=== PATIENT | female | born 1955 | race Caucasian/White ===

== ENCOUNTER 2021-08-27 19:17 | Emergency (ER) | payer OTHER ==
[~2021-08-27] VITALS: Ht 165.1 cm; Wt 70.3 kg
--- NOTE | 2021-08-27 19:40 | NUR ---
Brief report received from [facility], pt had just arrived and was not looking good. Pt had pale color, bloatted abdomen, nonverbal aaox0, does not answer questions, does not follow commands. eyes closed or staring off into space. VSS, slightly hypotensive at 90/58, 74bpm, 97% RA, no indications of pain. EDMD ordered 2 IVs and IV fluid bolus stat.
[2021-08-27] MEDS ORDERED: LIDOCAINE 1%-EPI 1:100,000 20 ML VIAL IJ ONE (20:00)
--- NOTE | 2021-08-27 20:04 | NUR ---
mEDICATION LIST PROVIDED BY ems IS INCOMPLETE, ONLY INCLUDES NAME OF DRUG, NO DOSAGE OR FREQUENCY. WILL CALL FAMILY TO BRING IN MORE COMPLETED LIST WHEN I HAVE TIME
[2021-08-27] MEDS ORDERED: LIDOCAINE 1%-EPI 1:100,000 20 ML VIAL ONE (20:08)
[2021-08-27 20:20] LABS: HEMATOCRIT 28.4 % (31.2-41.9); MEAN CORPUSCULAR HEMOGLOBIN 27.4 uug (24.7-32.8); MEAN CORPUSCULAR VOLUME 82.2 fL (75.5-95.3); PLATELET COUNT (AUTO) 456 K/uL (179-408)
--- NOTE | 2021-08-27 20:20 | NUR ---
DR FUNES AT BEDSIDE FOR PERICENTESIS. OVER 1500 CC OF FLUID WERE DRAINED OVER TIME
[2021-08-27 20:23] LABS: CARBON DIOXIDE 26 mmol/L (21-32); CHLORIDE 99 mmol/L (98-107); GLUCOSE 127 mg/dL (74-106); POTASSIUM 4.6 mmol/L (3.5-5.1); UREA NITROGEN, BLOOD 51 mg/dL (7-18)
[2021-08-27 20:25] LABS: ETHANOL < 3 MG/DL (0-0)
[2021-08-27 20:30] LABS: *BILIRUBIN,URIN NEGATIVE (NEGATIVE); *BLOOD, URINE 1+ (NEGATIVE); *CLARITY,URINE SLIGHTLY CLOUDY (CLEAR); *COLOR,URINE YELLOW (YELLOW); *KETONES,URINE NEGATIVE (NEGATIVE); *UROBILINOGEN,URINE 0.2 E.U./dl (NORMAL); LEUKOCYTE ESTERASE ,URINE NEGATIVE (NEGATIVE); NITRITE, URINE NEGATIVE (NEGATIVE); PH,URINE 8.5 (5.0-8.0); UGLUCOSE TRACE (NEGATIVE)
[2021-08-27 20:35] LABS: ACETAMINOPHEN < 2.0 ug/mL (10-30); ALANINE AMINOTRANSFERASE 63 U/L (14-59); ALKALINE PHOSPHATASE 328 U/L (50-136); ASPARTATE AMINOTRANSFERASE 78 U/L (15-37); BILIRUBIN,TOTAL 0.5 mg/dL (0.2-1.0); TOTAL PROTEIN, SERUM 6.5 g/dL (6.4-8.2)
[2021-08-27] MEDS ORDERED: METRONIDAZOLE 500 MG/NS 100 ML PIGGYBACK IV ONE (20:45)
[2021-08-27] MEDS ORDERED: CEFTRIAXONE 1 G in IV DEXTROSE 5% 50 ML IV ONE (20:45)
[2021-08-27] MEDS ORDERED: VANCOMYCIN IV 1,000 MG in IV DEXTROSE 5% 250 ML IV ONE (20:45)
[2021-08-27] MEDS ORDERED: IV LACTATED RINGERS SOLUTION 1,000 ML BAG IV ONE (20:45)
[2021-08-27] MEDS ORDERED: CEFTRIAXONE /D5W 50ML IVPB **ER PYXIS IV ONE (20:50)
[2021-08-27 20:53] LABS: ABG BASE EXCESS -0.2 mmol/L; ABG HCO3 23.2 mmol/L; ABG PH 7.464 (7.350-7.450); ABG PO2 70.2 mmHg (75.0-100.0); ABG SITE LEFT RADIAL; ABG TOTAL HEMOGLOBIN 9.5 G/dL (12.0-16.0); COHb 0.1 % (0.5-1.5); MetHb 0.1 % (0.0-1.5); O2Hb 94.2 % (94.0-97.0)
--- NOTE | 2021-08-27 21:01 | NUR ---
HAND OFF REPORT GIVEN TO ANTONIO OLIVARES
[2021-08-27] MEDS ORDERED: NOREPINEPHRINE BITARTRATE 4 MG/4 ML VIAL IV ONE (21:08)
[2021-08-27] MEDS ORDERED: HALOPERIDOL LACTATE 5 MG/1 ML VIAL IV ONE (21:15)
[2021-08-27] MEDS ORDERED: HALOPERIDOL LACTATE 5 MG/1 ML VIAL ONE ×2 (21:21→21:51)
[2021-08-27] MEDS ORDERED: SWABABLE VALVE TRANSFER SET EA MC ONE (21:38)
[2021-08-27] MEDS ORDERED: IOHEXOL 300MG/ML 100 ML INFUS..BTL ONE (21:38)
[2021-08-27] MEDS ORDERED: IV NORMAL SALINE 250 ML IV ONE (21:38)
--- NOTE | 2021-08-27 22:25 | NUR ---
[facility] [facility] called requesting information on ptRajiv at [phone].
--- NOTE | 2021-08-27 23:00 | NUR ---
telephone call to [place] [facility], spoke to Eliezer and requested to have Kapil PENA call Dr. Quinonez. [place] Vielka Dukes
[2021-08-27] MEDS ORDERED: METRONIDAZOLE 500 MG/NS 100ML 100 ML IV ONE (23:34)
[2021-08-27] MEDS ORDERED: VANCOMYCIN IV 200 ML ONE (23:35)
--- NOTE | 2021-08-28 00:10 | NUR ---
Telephone call to [facility], spoke to Garry and informed of negative COVID test result.
[2021-08-28] MEDS ORDERED: HALOPERIDOL LACTATE 5 MG/1 ML VIAL IV ONE (01:00)
[2021-08-28] MEDS ORDERED: HALOPERIDOL LACTATE 5 MG/1 ML VIAL ONE (01:00)
[2021-08-28] MEDS ORDERED: LORAZEPAM 2 MG/1 ML VIAL IV ONE (01:30)
--- NOTE | 2021-08-28 01:45 | NUR ---
At bedside to draw lactic acid level. Pt still screaming to leave her alone. LA draw without difficutly and sent to lab. VSS 123/68, 87bpm, 99% 4L O2, 16rpm, no signs of pain or discomfort.
--- NOTE | 2021-08-28 02:12 | NUR ---
Robert from [facility] called to inform us that pt will be going to [facility] and that we are just waiting for an admitting doc to accept her. Robert was kindly asked if he could expodite at all. He obliged by say he will do what he can. Pt is resting comfortably, lights off, rails up , VSS, just fell asleep with audible snorring after screaming out for a long while since r and d lab technician went in to draw blood cult. x2
--- NOTE | 2021-08-28 02:21 | NUR ---
Pt finally stopped screaming out "leave me alone" and has drifted off to sleep with audible snorring. Rails up, call light within reach, all needs met. Pt is clean and dry and in pos of comfort. Waiting the green light for transport from [facility].
--- NOTE | 2021-08-28 03:43 | NUR ---
EDMD just inserted a 3lumen central line without difficulty. PCXR confirmed placement.
[2021-08-28] MEDS ORDERED: NOREPINEPHRINE BITARTRATE 32 MG in IV NORMAL SALINE 218 ML IV PRN (03:45)
--- NOTE | 2021-08-28 04:05 | NUR ---
EMT-ps are here for transport to [facility].
--- NOTE | 2021-08-28 04:10 | NUR ---
Pt loaded up on amb stretcher, connected to port monitor. Sau[place]o emptied, VSS, AAOx0. Transfer paperwork given to reinforcing steel erector before departing.
--- NOTE | 2021-08-28 04:15 | NUR ---
Called [facility] and gave thorough report to Kraig OLIVARES using SBAR method. Told him that pt is in route with ETA of 20 min. Kraig confirmed and said he will be expecting them soon.
== END 2021-08-28 04:15 | disposition short-term general hospital (02) ==
LOC: ER 19:20
DX: A41.9 Sepsis, unspecified organism (principal); R60.1 Generalized edema; K62.5 Hemorrhage of anus and rectum; R41.82 Altered mental status, unspecified; L89.319 Pressure ulcer of right buttock, unspecified stage; G35 Multiple sclerosis; Z85.42 Personal history of malignant neoplasm of other parts of uterus; E11.9 Type 2 diabetes mellitus without complications; J90 Pleural effusion, not elsewhere classified; R91.8 Other nonspecific abnormal finding of lung field; I11.9 Hypertensive heart disease without heart failure; R94.31 Abnormal electrocardiogram [ECG] [EKG]; K76.0 Fatty (change of) liver, not elsewhere classified; K59.00 Constipation, unspecified; Z20.822 Contact with and (suspected) exposure to COVID-19
CPT/HCPCS: 36415 ×2; 36556; 36600; 49083; 70450; 71045 ×2; 74177; 80053; 80179; 80299; 80320; 81001; 82140; 83605; 83690; 83880; 83986; 84484; 84702; 85025; 85610; 87040 ×2; 87070; 87205; 87426; 93005; 96365; 96366 ×2; 96367; 96368; 96375; 99285; J0696; J1630 ×3; J3370; J3490 ×2; J7060; J7120 ×4; Q9967; 70030-TC; G0480; J7050

== ENCOUNTER 2021-09-07 16:04 | Emergency (ER) | payer OTHER ==
[~2021-09-07] VITALS: Ht 162.6 cm; Wt 68.0 kg
[2021-09-07] MEDS ORDERED: ATOR10TA PO (16:28)
[2021-09-07] MEDS ORDERED: TRAZ-182 PO (16:28)
[2021-09-07] MEDS ORDERED: FLUO10CA26 PO (16:28)
[2021-09-07] MEDS ORDERED: LOSA25TA3 PO (16:28)
[2021-09-07] MEDS ORDERED: ARIP2TAB3 PO (16:28)
[2021-09-07] MEDS ORDERED: BUPR-96 PO (16:28)
[2021-09-07] MEDS ORDERED: METF-440 PO (16:28)
[2021-09-07] MEDS ORDERED: GABA-532 PO (16:28)
[2021-09-07 16:33] LABS: HEMATOCRIT 31.8 % (31.2-41.9); MEAN CORPUSCULAR HEMOGLOBIN 27.4 uug (24.7-32.8); MEAN CORPUSCULAR VOLUME 85.2 fL (75.5-95.3); PLATELET COUNT (AUTO) 462 K/uL (179-408)
[2021-09-07 16:34] LABS: *BILIRUBIN,URIN NEGATIVE (NEGATIVE); *COLOR,URINE YELLOW (YELLOW); *KETONES,URINE NEGATIVE (NEGATIVE); *UROBILINOGEN,URINE 0.2 E.U./dl (NORMAL); LEUKOCYTE ESTERASE ,URINE 1+ (NEGATIVE); NITRITE, URINE NEGATIVE (NEGATIVE); UGLUCOSE NEGATIVE (NEGATIVE)
[2021-09-07 16:39] LABS: CREATININE 0.8 mg/dL (0.6-1.3); POTASSIUM 4.6 mmol/L (3.5-5.1)
[2021-09-07 16:41] LABS: *BLOOD, URINE TRACE (NEGATIVE)
[2021-09-07 16:42] LABS: *CLARITY,URINE CLOUDY (CLEAR); BACTERIA,URINE FEW /HPF (NONE SEEN); SQUAMOUS EPITHELIAL CELL,UR MODERATE /HPF (NONE SEEN); WBC,URINE 20-50 /HPF (0-3); YEAST,URINE MANY /HPF (NONE SEEN)
[2021-09-07 16:53] LABS: BILIRUBIN,DIRECT 0.3 mg/dL (0.0-0.2); BILIRUBIN,TOTAL 0.5 mg/dL (0.2-1.0); TOTAL PROTEIN, SERUM 6.5 g/dL (6.4-8.2)
--- NOTE | 2021-09-07 16:54 | NUR ---
Spoke to pt's POA Jun Paul @ [phone], Per his request please notify him of any acute problems/transfers.
[2021-09-07] MEDS ORDERED: PIPERACILLIN SODIUM/TAZOBACTAM 3.375 G in IV DEXTROSE 5% 50 ML IV ONE (17:00)
[2021-09-07] MEDS ORDERED: PIPERACILLIN/TAZOBACTAM/D5W 50 ML IV ONE (17:42)
--- NOTE | 2021-09-07 19:07 | NUR ---
pt a/o denies pain. plan is for pt to transfer to [place].
--- NOTE | 2021-09-07 19:23 | NUR ---
Call to [facility] [phone]. spoke with Izzy rolon doctor call back to speak to er md Dr. Muller.
--- NOTE | 2021-09-07 19:32 | NUR ---
Kapil PENA called to speak to Dr. Muller.
--- NOTE | 2021-09-07 20:11 | NUR ---
call to [facility] spoke with Izzy states they are waiting on a call back from one of there doctors.
--- NOTE | 2021-09-07 21:20 | NUR ---
new info obtained pt accepted to [facility] accepting Dr. Cordon. Still waiting on bed number call for report number and transport eta.
--- NOTE | 2021-09-07 21:32 | NUR ---
Spoke to pt's POA Jun Paul @ [phone], updated him on status and that pt will go to [facility] no bed number yet. 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
--- NOTE | 2021-09-07 23:14 | NUR ---
report given to Marty OLIVARES at [facility] pt to go to room 4016 B report number is [phone].
--- NOTE | 2021-09-07 23:19 | NUR ---
Spoke to pt's POA Jun Paul @ [phone] updated him on the room number at [facility], when the pt will be transported and to what room.
--- NOTE | 2021-09-07 23:44 | NUR ---
prn transport is here to transport the patient to [facility].
== END 2021-09-07 23:55 ==
LOC: ER 16:08
DX: R60.1 Generalized edema (principal); R18.8 Other ascites; N39.0 Urinary tract infection, site not specified; K74.60 Unspecified cirrhosis of liver; R62.7 Adult failure to thrive; I10 Essential (primary) hypertension; E11.9 Type 2 diabetes mellitus without complications; Z68.25 Body mass index [BMI] 25.0-25.9, adult; Z79.899 Other long term (current) drug therapy; Z20.822 Contact with and (suspected) exposure to COVID-19
CPT/HCPCS: 36415; 71045; 74176; 80048; 80076; 81001; 83605 ×2; 83690; 83880; 84145; 84484; 85025; 85730; 87040 ×2; 87086; 87426; 93005; 99285; J2543; 70030-TC; A4663

== ENCOUNTER 2021-10-02 14:16 | Emergency (ER) | payer OTHER ==
[~2021-10-02] VITALS: Ht 165.1 cm; Wt 72.6 kg
[~2021-10-02 14:16] MED LIST: ARIP2TAB3 PO; ATOR10TA PO; BUPR-96 PO; FLUO10CA26 PO; GABA-532 PO; LOSA25TA3 PO; METF-440 PO; TRAZ-182 PO
--- NOTE | 2021-10-02 14:28 | NUR ---
PT IS IN ROOM #1B. DR DAVIS EVALUATED THE PT.
[2021-10-02 15:08] LABS: HEMATOCRIT 34.8 % (31.2-41.9); MEAN CORPUSCULAR HEMOGLOBIN 27.7 uug (24.7-32.8); MEAN CORPUSCULAR VOLUME 87.5 fL (75.5-95.3); PLATELET COUNT (AUTO) 407 K/uL (179-408)
[2021-10-02 15:17] LABS: CREATININE 0.7 mg/dL (0.6-1.3); POTASSIUM 4.4 mmol/L (3.5-5.1)
[2021-10-02 15:20] LABS: ALANINE AMINOTRANSFERASE 100 U/L (14-59); ALKALINE PHOSPHATASE 425 U/L (50-136); ASPARTATE AMINOTRANSFERASE 114 U/L (15-37); BILIRUBIN,DIRECT 0.4 mg/dL (0.0-0.2); BILIRUBIN,TOTAL 0.6 mg/dL (0.2-1.0); LIPASE 96 U/L (73-393); TOTAL PROTEIN, SERUM 6.1 g/dL (6.4-8.2)
[2021-10-02 15:49] LABS: *BILIRUBIN,URIN NEGATIVE (NEGATIVE); *BLOOD, URINE TRACE (NEGATIVE); *CLARITY,URINE CLEAR (CLEAR); *COLOR,URINE YELLOW (YELLOW); *KETONES,URINE NEGATIVE (NEGATIVE); *UROBILINOGEN,URINE 0.2 E.U./dl (NORMAL); LEUKOCYTE ESTERASE ,URINE 2+ (NEGATIVE); NITRITE, URINE NEGATIVE (NEGATIVE); PH,URINE 5.5 (5.0-8.0); UGLUCOSE NEGATIVE (NEGATIVE)
[2021-10-02] MEDS ORDERED: PIPERACILLIN SODIUM/TAZOBACTAM 3.375 G in IV DEXTROSE 5% 50 ML IV ONE (16:15)
[2021-10-02] MEDS ORDERED: ONDANSETRON ODT 4 MG TAB.RAPDIS ONE (16:35)
[2021-10-02] MEDS ORDERED: PIPERACILLIN/TAZOBACTAM/D5W 50 ML IV ONE (16:43)
[2021-10-02] MEDS ORDERED: MORPHINE SULFATE 2 MG/1 ML DISP.SYRIN IV ONE (16:45)
[2021-10-02] MEDS ORDERED: MORPHINE SULFATE 2 MG/1 ML DISP.SYRIN ONE (16:54)
--- NOTE | 2021-10-02 17:02 | NUR ---
[facility] [employer] [employer] [facility] CALLED WITH INFORMATION : PT IS GOING TO BE TRANSFERED TO [facility] [place]. SHE IS GOING TO CALL BACK WITH TRANSFER INFORMATION.
[2021-10-02 18:19] LABS: BACTERIA,URINE FEW /HPF (NONE SEEN); SQUAMOUS EPITHELIAL CELL,UR FEW /HPF (NONE SEEN); WBC,URINE 50-80 /HPF (0-3); YEAST,URINE FEW /HPF (NONE SEEN)
[2021-10-02 18:20] LABS: CALCIUM OXALATE CRYSTALS,UR FEW /HPF (NONE SEEN)
--- NOTE | 2021-10-02 19:00 | NUR ---
RECEIVED REPORT FROM MARSHALL BROWNE. PT NOTED TO BE IN BED, IN NO DISTRESS. A/O X3, DENIES ANY PAIN/DISCOMFORT AT THIS MOMENT.
--- NOTE | 2021-10-02 20:19 | NUR ---
CALLED [facility] FOR F/U SPOKE WITH MATI, "STILL WAITING ON [facility] TO GIVE US A BED".
--- NOTE | 2021-10-02 21:20 | NUR ---
Received call back from [facility] with transfer information, patient going to [facility], room 4061A, number to report to , Accepting MD is Dr. Mac, eta is [phone] [facility].
--- NOTE | 2021-10-02 21:34 | NUR ---
GAVE REPORT TO [facility] NURSE JORDANA.
--- NOTE | 2021-10-02 21:57 | NUR ---
[facility] AT BEDSIDE, UNIT [address].
--- NOTE | 2021-10-02 22:11 | NUR ---
Patient Tranfers to outside Facility Physician: Dr. aMc, Location: [facility] Pt transfered in stable condition, Denies any pain/discomfort. No SOB or labored breathing. Denies any N/V. VSS
== END 2021-10-02 22:16 | disposition short-term general hospital (02) ==
LOC: ER 14:18
DX: K74.60 Unspecified cirrhosis of liver (principal); R60.1 Generalized edema; N39.0 Urinary tract infection, site not specified; J90 Pleural effusion, not elsewhere classified; R10.9 Unspecified abdominal pain; I48.91 Unspecified atrial fibrillation; G35 Multiple sclerosis; E11.9 Type 2 diabetes mellitus without complications; Z79.84 Long term (current) use of oral hypoglycemic drugs; Z79.899 Other long term (current) drug therapy; Z20.822 Contact with and (suspected) exposure to COVID-19
CPT/HCPCS: 36415; 71045; 74176; 80048; 80076; 81001; 82140; 83605 ×2; 83690; 84484; 85025; 85730; 87040 ×2; 87086; 87426; 93005; 96365; 96366; 96375; 99285; J2270; J2543; A4663; Q0162